=== PATIENT | female | born 1995 | race Caucasian/White ===

== ENCOUNTER 2022-06-07 17:09 | Outpatient (CLI) | payer OTHER, SELFPAY ==
[2022-06-07 20:24] LABS: Cholesterol* 169 mg/dL (90-199); Glucose* 88 mg/dL (60-115); HDL Cholesterol* 89 mg/dL (>=50); LDL Cholesterol Calculated 62 mg/dL (<100); Triglycerides* 91 mg/dL (40-149)
== END 2022-06-07 17:10 | disposition home or self-care (01) ==
PROVIDERS: Visit Provider Registered Nurse
DX: Z01.419 Encounter for gynecological examination (general) (routine) without abnormal findings (principal); Z13.6 Encounter for screening for cardiovascular disorders; Z13.1 Encounter for screening for diabetes mellitus; Z13.29 Encounter for screening for other suspected endocrine disorder
CPT/HCPCS: 80061; 82947; 84443

== ENCOUNTER 2022-06-17 10:02 | Outpatient (CLI) | payer OTHER, SELFPAY ==
--- NOTE | 2022-06-17 10:15 | CRLHL7_ITS ---
For Patients: As a result of the Century Cures Act, medical imaging exams and procedure reports are released immediately into your electronic medical record. You may view this report before your referring provider. If you have questions, please contact your health care provider. LEFT BREAST ULTRASOUND CLINICAL HISTORY: 27-year-old with LEFT breast lump. TECHNIQUE: Ultrasound performed of the LEFT breast. COMPARISON FILM: No comparison available. FINDINGS: Ultrasound of the patient`s lump at the LEFT breast 3 o`clock position 3 cm from the nipple demonstrates no suspicious findings. IMPRESSION: Negative LEFT breast ultrasound. Further management should be based clinically. Recommend start of yearly screening mammography at age 40. ASSESSMENT: BI-RADS Category 2: Benign A lay language report of this examination will be provided to the patient. Veena Pierce M.D. Diagnostic/Breast Radiologist [email or web address]/Dictated by: Veena Pierce MD @ 06/17/2022 11:42:00 AM (Electronically Signed)
== END 2022-06-17 10:03 | disposition home or self-care (01) ==
PROVIDERS: Visit Provider Registered Nurse
DX: N63.20 Unspecified lump in the left breast, unspecified quadrant (principal)
CPT/HCPCS: 76642

== ENCOUNTER 2023-05-16 15:50 | Outpatient (CLI) | payer OTHER, SELFPAY ==
--- NOTE | 2023-05-16 16:00 | CRLHL7_ITS ---
For Patients: As a result of the Cures Act, medical imaging exams and procedure reports are released immediately into your electronic medical record. You may view this report before your referring provider. If you have questions, please contact your health care provider. INDICATION: First trimester scan, establish dates. COMPARISON: None. TECHNIQUE: Real-time norman-scale imaging of the pelvis was performed. FINDINGS: Sonographic imaging demonstrates a single living intrauterine gestation. The embryo demonstrates a regular cardiac rate measuring 180 beats per minute. The embryo`s crown-rump length measurement of 2.3 cm corresponds to a gestational age of 9 weeks 0 days with a sonographic due date of 12/22/2023. There is a normal-appearing yolk sac. There are no gross abnormalities noted within the embryo at this early state of development. The gestational sac has a normal appearance. There is a 2.7 x 1.5 x 2.4 cm perigestational hemorrhage. The amount of fluid within the sac appears appropriate for gestational age. The cervix is closed. The myometrium appears normal. The ovaries are of normal size. Corpus luteal cyst left ovary. There are no suspicious fluid collections noted in the cul-de-sac. IMPRESSION: Single living intrauterine with sonographic gestational age 9 weeks 0 days and sonographic due date 12/22/2023. Inferior subchorionic hemorrhage measuring 2.7 x 1.5 x 2.4 cm. Dictated by Chuy España MD @ 05/17/2023 8:39:41 AM (Electronically Signed)
== END 2023-05-16 15:51 | disposition home or self-care (01) ==
LOC: US 15:51
PROVIDERS: Visit Provider Registered Nurse
DX: Z34.91 Encounter for supervision of normal pregnancy, unspecified, first trimester (principal); O20.9 Hemorrhage in early pregnancy, unspecified; Z3A.09 9 weeks gestation of pregnancy
CPT/HCPCS: 76817; 86592; 86703; 86704; 86706; 86762; 86787; 86803; 86850; 86900; 86901; 87086; 87340; 87491; 87591

== ENCOUNTER 2023-08-03 07:10 | Outpatient (CLI) | payer OTHER, SELFPAY ==
--- NOTE | 2023-08-03 07:15 | US_ITS ---
Patient: DAVID MARKS Facility:?[facility] Patient ID:?[id number] Site Patient ID:?[id number]. Site :?1995 Study:?US-OB Pelvis BFAS-08/03/2023 8:13:12 AM Ordering Physician:ELIZ MONTIEL Final Report: INDICATION: Evaluate anatomy. COMPARISON: 05/16/2023 TECHNIQUE: Real time norman scale imaging of the fetus was performed as well as color Doppler analysis of the umbilical vessels. FINDINGS: Sonographic imaging demonstrates a single living intrauterine gestation. Fetus demonstrates a regular cardiac rate of 163 beats per minute. Fetus has a vertex position. The placenta lies anteriorly without evidence of placenta previa. Placental edge is 3.5 cm from the internal cervical os. Amniotic fluid volume appears normal. Single deepest vertical pocket: 3.0 cm. The cervix is closed and measures 3.7 cm in length. The composite ultrasound gestational age is calculated at 20 weeks 2 days with an estimated sonographic due date of 12/19/2023. The estimated weight is 334 grams which lies at the 62nd %. The following biometric measurements were obtained: Biparietal diameter: 4.7 cm/20 weeks 2 days 70th% Head circumference: 17.8 cm/20 weeks 2 day 62nd% Abdominal circumference: 14.5 cm/19 weeks 6 days 43rd% Femur length: 3.3 cm/20 weeks 3 days 65th% The HC/AC ratio measures: 1.23 range (1.07-1.25) On anatomic survey, there is incomplete visualization of the cerebral ventricles, cavum septi pellucidi, cisterna magna and cerebellum. The nose, lips, and facial profile appear normal. The cervical, thoracic and lumbar spine are well visualized and appear normal. There is a normal four-chamber heart view and the left and right ventricular outflow tracts appear normal. The diaphragm and stomach appear normal. The kidneys and bladder also appear normal. There is a normal three-vessel cord and cord insertion site. The four extremities appear normal. IMPRESSION: Concordance of clinical and sonographic dating. Incomplete visualization of the intracranial structures. Remainder of the anatomic survey normal. Follow-up recommended. Dictated by Chuy España MD @ 08/03/2023 10:46:03 AM Signed by:?Chuy España MD @08/03/2023 10:46:03 AM (Electronic Signature)
== END 2023-08-03 07:11 | disposition home or self-care (01) ==
LOC: US 07:11
PROVIDERS: Visit Provider Advanced Practice Midwife
DX: Z34.92 Encounter for supervision of normal pregnancy, unspecified, second trimester (principal); Z3A.20 20 weeks gestation of pregnancy
CPT/HCPCS: 76805

== ENCOUNTER 2023-08-18 07:04 | Outpatient (CLI) | payer OTHER, SELFPAY ==
--- NOTE | 2023-08-18 07:15 | US_ITS ---
Patient: DAVID MARKS Facility:?[facility] Patient ID:?[id number] Site Patient ID:?[id number]. Site :?1995 Study:?US-OB Pelvis OB F/U SUBOPTIMAL VIEWS-08/18/2023 8:10:10 AM Ordering Physician:?TERESA NUNO M.D. Final Report: INDICATION: Suboptimal visualization of intracranial structures on survey TECHNIQUE: Limited transabdominal two-dimensional norman-scale ultrasound examination. COMPARISON: survey of 08/03/2023 FINDINGS: There is a living fetus in cephalic lie with gestational age of 22 weeks by LMP and EDC of 12/22/2023. The heart rate is measured at 155 beats per minute and the rhythm appears regular. The intracranial structures are visualized and appear to be within normal limits. A 4-chamber heart is demonstrated. The ventricular outflow tracts appear to be within normal limits. A IMPRESSION: 1. Living fetus in cephalic lie with gestational age of 22 weeks by LMP and EDC of 12/22/2023. 2. Intracranial structures visualized and appear to be within normal limits. Dictated by Jarvis Escalera MD @ 08/18/2023 2:29:09 PM Signed by:?Jarvis Escalera MD @08/18/2023 2:29:09 PM (Electronic Signature)
== END 2023-08-18 07:05 | disposition home or self-care (01) ==
LOC: US 07:04
PROVIDERS: Visit Provider Obstetrics & Gynecology
DX: O35.8XX0 Maternal care for other (suspected) fetal abnormality and damage, not applicable or unspecified (principal); Z3A.22 22 weeks gestation of pregnancy
CPT/HCPCS: 76816

== ENCOUNTER 2023-09-29 09:58 | Outpatient (CLI) | payer OTHER, SELFPAY ==
--- NOTE | 2023-09-29 10:15 | CRLHL7_ITS ---
For Patients: As a result of the Century Cures Act, medical imaging exams and procedure reports are released immediately into your electronic medical record. You may view this report before your referring provider. If you have questions, please contact your health care provider. INDICATION: Right lower extremity swelling TECHNIQUE: Ultrasound venous duplex lower right extremity. Compression venous exam was performed using norman-scale, color Doppler, and spectral Doppler imaging. COMPARISON: None. FINDINGS: Sonographic imaging demonstrates the right common femoral, deep femoral, superficial femoral, popliteal, posterior tibial and greater saphenous and the contralateral left common femoral veins to be fully compressible with normal color Doppler blood flow. IMPRESSION: Normal right lower extremity venous ultrasound, no sign of deep venous thrombosis. Dictated by Hong Pickett MD @ 09/29/2023 10:57:57 AM (Electronically Signed)
== END 2023-09-29 09:59 | disposition home or self-care (01) ==
LOC: US 09:58
PROVIDERS: Visit Provider Obstetrics & Gynecology
DX: R22.41 Localized swelling, mass and lump, right lower limb (principal)
CPT/HCPCS: 86592; 93971

== ENCOUNTER 2023-11-27 10:35 | Outpatient (CLI) | payer BC, SELFPAY | END 2023-11-27 10:36 | disposition home or self-care (01) | LOC: NFLDREF 11-28 13:49 | PROVIDERS: Visit Provider Obstetrics & Gynecology | DX: Z34.93 Encounter for supervision of normal pregnancy, unspecified, third trimester (principal); Z3A.36 36 weeks gestation of pregnancy | CPT/HCPCS: 87081; 87653 ==

== ENCOUNTER 2023-12-04 22:56 | Inpatient (IN) | payer BC, SELFPAY ==
[2023-12-04 21:14] VITALS: PULSE 87; O2SAT 97
[2023-12-04 21:17] VITALS: BP 118/76; PULSE 80
[2023-12-04 21:18] VITALS: RESP 16; TEMP 36.6
--- NOTE | 2023-12-04 22:10 | W.PM.LDBA ---
Subjective History of Present Illness Time Seen by Provider: 22:00 Date Seen: 12/04/23 Narrative: Patient is being admitted to Labor and Delivery for spontaneous onset of labor. She is a 28 year old at 37 3/7 weeks gestation. Her full history and physical was dictated by Donna Vides earlier today. Please see this for details. This morning, she was experiencing menstrual-like low abdominal cramping and irregular contractions about 30 minutes apart. By 6:30 pm this evening, the contractions were about 7 minutes apart and more uncomfortable. By 8:30 pm, she had some brownish vaginal discharge followed by more red menstrual-like bloody discharge while wiping after a BM. She called and was advised to come in for evaluation. Currently, the contractions are more frequent and painful, rated 8/10, and she has to stop talking and breathe through them. She denies leakage of fluid. Her fetus remains active. Specific Issues/Plans G 1 P 0 Spouse: August Baby girl! H&P completed by MANDY Cervantes on 12/04/2023 1. History of asthma. Has not used an inhaler in over 1 year. 2. History of migraine with aura. Usually occurs 1 time per year. 3. Subchorionic hemorrhage measuring 2.7 x 1.5 x 2.4 cm 4. Suboptimal cranial views on FAS 22 weeks: still suboptimal visualization per tech report, final radiology report WNL. Follow up u/s canceled. 5. Right LE varicose veins [x] negative DVT US on 09/28 Pap due pp Flu: Completed Covid: 05/16/2023 TDAP 10/13/23 34 week Hgb: 13 OB - Problem Based A/P Additional Plan (1) Spontaneous onset of labor: Status: Acute Plan Admit to the Center. Pain control options reviewed. Patient thinking about soaking in the tub. Intermittent monitoring fine for now. Delivery/Labor/Induction Plan Plan: expectant management OB Result Labs Blood Type: O (+) positive Rubella: immune RPR/VDLR: nonreactive GBS Status: negative HBsAG: negative OB Exam Physical Exam Vital signs: Pulse BP Pulse Ox 80 118/76 97 12/04/23 21:17 12/04/23 21:17 12/04/23 21:14 Detailed Labor and Delivery Exam Patient Gravid: Yes Dilation (cm): 3 Effacement (%): 100 Cervix position: mid Consistency: soft Contraction Frequency: 2-6 minutes Contraction duration (sec): 50 Tachysystole: No Contraction intensity: Moderate Fetus (Single) Station: 0 Amniotic Membrane Status: intact Heart Rate Baseline: 135 Monitor Accelerations: Present Monitor Decelerations: None Skilled Nursing Variability: Moderate (6-25)
[2023-12-04] MEDS: LACTATED RINGERS 1000 ML 1,000 ML 900 ML IV (23:43)
[2023-12-04 23:48] VITALS: BP 137/64; PULSE 110
[2023-12-05] VITALS (52 sets, daily range): BP systolic 86–140; BP diastolic 49–81; PULSE 64–117; RESP 16; TEMP 36.4–37.7; O2SAT 97–100
[2023-12-05 00:33] LABS: Basophils Percent Auto 0.1 % (0.0-3.0); Eosinophils Percent Auto 0.9 % (0.0-7.0); Hemoglobin* 14.3 gm/dL (12.0-16.0); Immature Granulocytes Pct Auto 0.5 %; Lymphocytes Percent Auto 13.6 % (20-44); Mean Corpuscular HGB Conc 33 gm/dL (32-36); Mean Corpuscular Hemoglobin 30 pg (26-34); Mean Corpuscular Volume 90 fL (80-100); Monocytes Percent Auto 5.1 % (0.0-11.0); Neutrophils Percent Auto 79.8 % (42.0-72.0); Platelet Count* 151 K/uL (140-440); RDW Coefficient of Variation % 12.3 % (11.5-15.5); Red Blood Count 4.78 m/uL (4.00-5.20)
[2023-12-05] MEDS: LIDOCAINE 2% (PF) 5 ML VIAL EPIDURAL (00:37)
[2023-12-05] MEDS: ROPIVACAINE 0.2% 100 ml 100 ML 12 MG EPIDURAL (00:37)
[2023-12-05 00:38] LABS: Slide Review Reflex No
--- NOTE | 2023-12-05 00:46 | P.ANBPRC_ITS ---
[facility] Medical History Acne ?L70.9 - Acne, unspecified (ICD-10) Surgical History History of tonsillectomy ?Z90.89 - Acquired absence of other organs (ICD-10) Social History What is your current living situation?: I presently have a place to live Problems where you live: no known problems In the past 12 months, utilities in danger of being shut off: no In past 12 months, lack of transportation kept you from medical appts, meetings, work, or getting things needed for daily living: no In the past 12 mos, have been you worried that your food would run out before you had money to buy more?: never true In the past 12 mos, the food you bought just didn't last and you didn't have money to buy more?: never true Smoking Status: Never smoker How often does anyone, including family, friends and others, physically hurt you : never How often does anyone, including family, friends and others, insult or talk down to you: never How often does anyone, including family, friends and others, threaten you with harm: never How often does anyone, including family, friends and others, scream or curse at you: never Little interest or pleasure in doing things: not at all Feeling down, depressed, or hopeless: not at all Meds Home Medications and Allergies Home Medications ?Medication ?Instructions ?Recorded ?Confirmed ?Type docosahexaenoic acid 200 mg mg PO DAILY 05/16/23 12/04/23 History capsule ( DHA) aspirin 81 mg tablet,delayed 81 mg PO QDAY 08/18/23 12/04/23 History release (Adult Low Dose Aspirin) Allergies Allergy/AdvReac Type Severity Reaction Status Date / Time peanut Allergy Severe Anaphylaxis Verified 12/04/23 13:05 Results Labs Labs: Laboratory Results - last 24 hr 12/04/23 21:15 WBC 13.80 H RBC 4.78 Hgb 14.3 Hct 43.0 MCV 90 MCH 30 MCHC 33 RDW Coeff of Raheel 12.3 Plt Count 151 Neut % (Auto) 79.8 H Lymph % (Auto) 13.[address] [place] % (Auto) 5.1 Eos % (Auto) 0.9 Baso % (Auto) 0.1 Neut # (Auto) 11.00 H Lymph # (Auto) 1.90 [place] # (Auto) 0.70 Eos # (Auto) 0.10 Baso # (Auto) 0.00 Abs Immat Gran (auto) 0.10 Imm/Tot Granulo (auto) 0.5 Vital Signs Vital Signs: Last Vital Signs Temp 97.8 F 12/04/23 21:18 Pulse 104 H 12/05/23 00:45 Resp 16 12/04/23 21:18 BP 114/64 12/05/23 00:45 Pulse Ox 98 12/05/23 00:44 Anesthesia Procedures Epidural Insertion Patient Location: OB Start Time: 00:02 Stop Time: 01:02 Start Date: 12/05/23 Stop Date: 12/05/23 Reason for Block: procedure for pain Patient Position: sitting Performed By: Estrella Egan Preanesthetic Checklist: IV checked, risks and benefits discussed, monitors and equipment checked, pre-op evaluation, timeout performed and anesthesia consent Prep: chlorhexidine gluconate Monitoring: blood pressure monitoring, continuous pulse oximetry and heart rate Approach: midline Vertebral Space: lumbar (1-5) Epidural Technique: LIDIA saline Needle Type: Tuohy needle Injection Technique: continuous catheter (continuous catheter) Needle gauge: 17 Needle Length (cm): 10 cm Needle Insertion Depth (cm): 7 Catheter Gauge: 19 Catheter Type: multi-orifice Catheter at skin depth (cm): 15 Test Dose Result: negative and lidocaine 1.5% with epinephrine 1 to 200,000
[2023-12-05] MEDS: PHENYLEPHRINE 100 MCG/ML SYRINGE IVP ×2 (00:51→03:28)
[2023-12-05] MEDS: LACTATED RINGERS 1000 ML 1,000 ML 900 ML IV (01:07)
[2023-12-05] MEDS: OXYTOCIN 10 UNIT/ML INJ IM (06:39)
[2023-12-05] MEDS: LIDOCAINE 1 % PF 30 ML INJECTION (06:45)
[2023-12-05] MEDS: miSOPROStoL 800 MCG/4 TABLET PR (06:59)
--- NOTE | 2023-12-05 07:03 | W.PM.OBVAGDE ---
OB Procedure Vag Delivery Mother Details Mother Details: The patient is a 28 year-old, 1, Para 0, admitted on 12/04/23 at 37 3/7 weeks gestation in spontaneous labor. : 1 Para: 0 Weeks Gestation: 37.3 Admission Date: 12/04/23 Additional Details Amniotic Membrane Status: intact Amniotic Membrane Rupture Date: 12/05/23 Amniotic Membrane Rupture Time: 03:52 Amniotic Membrane Fluid Description: Clear Analgesia/Anesthesia Type: Epidural Waterbirth: No Pitcoin: No Intrapartal Events: None Delivery augmentation: rupture of membranes Labor Onset: 00:00 Complete: 04:55 Pushin:00 Heart: heart tones during second stage were 125 baseline with accels and intermittent variable and late decels with good return to baseline, goo variability, category 2. Delivery Details Delivery Date: 12/05/23 Delivery Time: 06:29 Route of delivery: Infant Gender: Female Infant Viability: Alive; Heart Rate Present Position at Delivery: OA Delivery Details: Delivered over intact perineum via spontaneous vaginal delivery. Infant was placed on maternal abdomen.? Cord was clamped and cut after a 30-60 second delay. Nose and mouth were bulb suctioned.? Infant weight pending. Administered pitocin 10 units IM following delivery of placenta, as IV was not running. Misoprostol 800 mcg [place] administered following repair. Additional Details Shoulder Dystocia: No Placenta Delivery Time: 06:35 Placental Delivery Description: Spontaneous Delivery repair: Vicryl (2nd degree vaginal laceration repair) and Chromic (bilateral periurethral laceration repair) Procedure Done: Global Blood Loss: 225 Laceration: Vaginal - 2nd Degree Episiotomy Description: None Blood Loss Measurement Type: QBL Bakri Used: No Sponge/Need Count Correct: Yes Cord Vessel Description: 3 Vessels Event Summary Status: Mother and were stable after delivery. Disposition: floor
[2023-12-05] MEDS: IBUPROFEN 600 MG TABLET PO ×3 (08:12→21:20)
[2023-12-05] MEDS: BENZOCAINE/MENTHOL SPRAY 85 GM AEROSOL 1 APPLIC TOPICAL (08:13)
[2023-12-05] MEDS: ACETAMINOPHEN 500 MG TABLET 1000 MG PO (10:59)
[2023-12-06 04:00] VITALS: BP 106/72; PULSE 69; RESP 16; TEMP 36.4; O2SAT 98
[2023-12-06] MEDS: IBUPROFEN 600 MG TABLET PO ×3 (04:59→17:51)
[2023-12-06 06:57] LABS: Hemoglobin* 12.4 gm/dL (12.0-16.0)
[2023-12-06 08:00] VITALS: BP 97/69; PULSE 69; RESP 14; TEMP 36.6
--- NOTE | 2023-12-06 08:09 | PM.OBPNVD1 ---
OB - PN:Subj Subjective Date Seen: 12/06/23 Patient comments OB post-: no complaints, pain well controlled, tolerating diet and flatus present [place] status: and doing well [place] feeding status: exclusively Narrative: Purnima feels well.? Her pain is well controlled with current medications.? She has no new complaints.? Urinary output is adequate and she is voiding without difficulty.? Has a good appetite, is tolerating a general diet, is passing flatus, and has not had a bowel movement.? Has small amount of rubra lochia.? She is ambulating well.?She is and feels it is going well. Encouraged her to ask for help as needed. She is not planning on discharging today but will anticipate discharge tomorrow. OB - PN: Obj Exam Physical Exam: Vital signs: Temp Pulse Resp BP Pulse Ox O2 Del Method 97.5 F L 69 16 106/72 98 Room Air 12/06/23 04:00 12/06/23 04:00 12/06/23 04:00 12/06/23 04:00 12/06/23 04:00 12/06/23 04:00 Narrative: GENERAL APPEARANCE:? normal affect, alert, no distress? MOOD:? appropriate? CHEST:? clear to auscultation and percussion? HEART:? regular rate and rhythm? ABDOMEN:? soft, non-tender the uterine fundus is U/2 and is appropriate for the stage of recovery. PERINEUM:? mild edema of the perineum, there is a 2nd degree laceration that is healing well.? EXTREMITIES:? normal and no edema? OB - PN: Obj Data Labs Labs: Laboratory Results - last 24 hr 12/06/23 06:37 Hgb 12.4 OB - PN: A/P Delivery Assessment and Plan (1) Lactating mother: Status: Acute (2) care following vaginal delivery: Status: Acute Plan day: 1 Plan: routine care Comments: Anticipate discharge home tomorrow.
[2023-12-06 11:35] VITALS: BP 104/69
--- NOTE | 2023-12-06 14:48 | PM.ANPOST ---
Post Anesthesia Note Post Anesthesia Note Patient seen: Inpatient Respiratory Status: adequate Cardiovascular Status: adequate Mental Status: baseline Pain: adequate Temp: baseline Anesthetic awareness: N/A Complications: none Follow care: none
[2023-12-06 16:15] VITALS: BP 112/76; PULSE 65; RESP 14; O2SAT 98
[2023-12-06 20:54] VITALS: BP 118/76; PULSE 66; RESP 16; TEMP 36.6; O2SAT 97
[2023-12-06] MEDS: DOCUSATE SODIUM 100 MG CAPSULE PO (21:21)
[2023-12-06] MEDS: ACETAMINOPHEN 500 MG TABLET 1000 MG PO (22:19)
[2023-12-07 03:03] VITALS: BP 109/73; PULSE 61; RESP 16; TEMP 36.5; O2SAT 97
[2023-12-07] MEDS: IBUPROFEN 600 MG TABLET PO ×2 (03:04→09:33)
[2023-12-07 07:42] VITALS: BP 112/76; PULSE 61; RESP 16; TEMP 36.7
[2023-12-07] MEDS: DOCUSATE SODIUM 100 MG CAPSULE PO (09:33)
--- NOTE | 2023-12-07 10:11 | P.DS_ITS ---
DS: Providers Provider Date Seen: 12/07/23 Date of admission: 12/04/23 22:56 Primary care physician: Not a Local Provider Admitting Clinician: Opal Rojo MD Attending Physician on discharge: Ani Bro APRN, CNM DS: Diagnosis Discharge Diagnosis (1) care following vaginal delivery: Status: Acute (2) Lactating mother: Status: Acute (3) Second degree perineal laceration: Status: Acute Exam Narrative: Exam Narrative: GENERAL APPEARANCE:? normal affect, alert, no distress MOOD:? appropriate CHEST:? clear to auscultation HEART:? regular rate and rhythm ABDOMEN:? soft, non-tender the uterine fundus is 3 cm below Umbilicus, Midline and is appropriate for the stage of recovery. PERINEUM:? mild edema of the perineum, there is a Perineal Laceration,? well approximated with no erythema EXTREMITIES:? normal and no edema Const: Vital Signs, click to edit/add: Vital Signs - 24 hr 12/06/23 11:35 12/06/23 16:15 12/06/23 20:54 Temperature 97.8 F Pulse Rate [Pulse Oximeter] 65 66 Respiratory Rate 14 16 Blood Pressure [Ri ght Arm] 104/69 112/76 118/76 Pulse Oximetry 98 97 Oxygen Delivery Me thod Room Air Room Air 12/07/23 03:03 12/07/23 07:42 Temperature 97.7 F 98.1 F Pulse Rate [Pulse Oximeter] 61 61 Respiratory Rate 16 16 Blood Pressure [Ri ght Arm] 109/73 112/76 Pulse Oximetry 97 Oxygen Delivery Me thod Room Air OB - DS: Summary Hospital Course Hospital Course: Purnima is a 28 y.o. who was admitted to L & D for Active labor at 37w3d. ?She had an uncomplicated NVD.?The patient feels well. ?The pain is well controlled with current medications. ?She has no new complaints. ?She is breast feeding and reports things are going well.? the patient has done well.? Vitals have been stable.? She has remained afebrile.? Has a good appetite, is tolerating a general diet. ?She is voiding without difficulty.? She is passing gas and has had a bowel movement.? She is ambulating and denies any dizziness.? Has Small amount of rubra lochia. ?She is unsure what they want to do for for prevention. Peripartum Data Infant delivery method: Vaginal Laceration description: Perineal - 2nd Degree Episiotomy description: None complications: none Infant Gender: Female Discharge Plan: Home Status at Discharge Overall status at discharge: patient is progressing back to baseline Time Spent with Patient Time attestation: Total time spent providing and/or coordinating discharge services: Time spent: Less than 30 minutes Discharge Plan Discharge Disposition: Home, Self-Care Date of Admission: 12/04/23 22:56 Attending Provider on Discharge: Ani Bro Primary Care Provider: Provider,Not a Local Condition: Stable Anticipated Discharge Date/Time: 12/07/23 10:16 Discharge Medications: Continued DHA 200 mg capsule PO DAILY epinephrine [EpiPen 2-Cristian] 0.3 mg/0.3 mL auto-injector 0.3 mg IM ONCE Qty: 2 1RF Rx Instructions: as a single dose; may repeat once Discontinued aspirin [Adult Low Dose Aspirin] 81 mg tablet,delayed release (DR/EC) 81 mg PO QDAY azelaic acid [Finacea] 15 % gel 1 applic topical .morning Qty: 50 3RF Discharge Orders: Discharge Order (Routine); Ordered 12/07/23 Ordered By: Ani Bro Patient Education: OB Care, OB Vaginal/Breast Feeding Additional Instructions: Discharge instructions were reviewed with the patient including signs and symptoms of infection and home going medications Nothing vaginally for 6 weeks: no tampons or intercourse Do not drive while taking narcotic pain medication(s) Off Work or School for 6 weeks Symptoms to report to doctor: * Bleeding that saturates more than one pad per hour * Passing clots larger than the size of a golf ball * Pain not relieved by prescribed medication * Fever above 100.4 degrees Fahrenheit * A foul vaginal odor * Difficulty in emotions, mood, and functions * Thoughts of hurting yourself and/or * Painful, reddened area in your breast * Any drainage, redness, or tenderness in your IV/epidural site * Severe headache that doesn't improve after taking medications * Changes in vision, including temporary loss of vision, blurred vision, and/or light sensitivity * Upper abdominal pain (usually under ribs on the right side) * Decrease in urination or painful, frequent urinating * Chest pain * Shortness of breath * Tenderness or pain with redness and/swelling in the calf(s) of your leg 2-week visit: discuss feeding concerns, review control options and screen for anxiety/depression. 6-week visit for an annual exam. You may take 600mg of ibuprofen by mouth every 6 hours for pain control as needed, as well as, Acetaminophen 1000mg by mouth every 6 hours as needed. Please take 100mg docusate sodium (colace) up to twice daily to soften stools until they return to normal. consultation services are available to all mothers and babies for the first year after delivery.? To make an appointment, please call [phone]. Activity Level: Activity as Tolerated Discharge Diet: Regular Follow Up Appointments: Provider,Not a Local [Primary Care Provider] - Forms: ideeli Info Instructions
[2023-12-08 01:25] LABS: Rapid Plasma Reagin (RPR) Non Reactive (Non Reactive)
== END 2023-12-07 13:42 | disposition home or self-care (01) | DRG 560 ==
LOC: OB OUT 22:57 → OB 22:57
PROVIDERS: Admitting Provider Obstetrics & Gynecology; Visit Provider Obstetrics & Gynecology
DX: O70.1 Second degree perineal laceration during delivery (principal); O71.82 Other specified trauma to perineum and vulva; Z3A.37 37 weeks gestation of pregnancy; Z37.0 Single live birth
CPT/HCPCS: 01967; 36415; 81003; 85018; 85025; 86592; 86850; 86900; 86901; A9270; J2001; J2371; J2590; J2795; J7120

== ENCOUNTER 2024-01-15 11:11 | Outpatient (CLI) | payer BC, SELFPAY ==
[2024-01-18 00:06] LABS: HPV Source Cervix; HPV, High Risk by TMA Not Detected
== END 2024-01-15 11:12 | disposition home or self-care (01) ==
PROVIDERS: Visit Provider Advanced Practice Midwife
DX: Z12.4 Encounter for screening for malignant neoplasm of cervix (principal)
CPT/HCPCS: 87624; 87625; 88141; 88142